=== PATIENT | male | born 1960 | race Caucasian/White ===

== ENCOUNTER 2019-12-18 19:07 | Observation (INO) ==
[2019-12-18 20:33] LABS: INR 1.1; Prothrombin Time 12.8 Seconds (9.4-12.1)
[2019-12-18 20:34] LABS: Basophils # 0.1 K/mcL (0.0-0.2); Eosinophils # 0.1 K/mcL (0.0-0.6); Eosinophils % 1.7 %; Hematocrit 42.4 % (37.5-50.1); Hemoglobin 13.9 g/dL (12.9-16.9); Immature Granulocytes % 0.2 % (0-4); Lymphocytes # 0.9 K/mcL (0.6-4.6); Lymphocytes % 18.2 %; Mean Corpuscular HGB Conc 32.8 g/dL (31.6-35.5); Mean Corpuscular Volume 91.6 fL (83.0-100.0); Mean Platelet Volume 11.8 fL (9.4-12.4); Monocytes # 0.6 K/mcL (0.0-1.3); Monocytes % 11.6 %; Neutrophils # 3.3 K/mcL (1.6-8.9); Platelet Count 141 K/mcL (140-400); Red Blood Count 4.63 M/mcL (4.19-5.50); Red Cell Distribution Width 13.2 % (11.5-14.5); Segmented Neutrophils % 67.3 %; White Blood Count 4.8 K/mcL (4.3-11.1)
[2019-12-18 20:36] LABS: Activated Partial Thrombo Time 32.5 Seconds (26.0-36.0)
[2019-12-18 21:05] LABS: Alanine Aminotransferase 35 Units/L (7-52); Albumin 4.5 g/dL (3.5-5.7); Albumin/Globulin Ratio 1.6 (1.1-2.2); Alkaline Phosphatase 60 Units/L (34-104); Aspartate Amino Transferase 26 Units/L (13-39); BUN/Creatinine Ratio 12 (6-26); Bilirubin,Direct 0.2 mg/dL (0.0-0.2); Bilirubin,Indirect 1.2 mg/dL (0.0-1.0); Bilirubin,Total 1.4 mg/dL (0.3-1.0); Blood Urea Nitrogen 12 mg/dL (8-23); Calcium 9.3 mg/dL (8.6-10.3); Carbon Dioxide 23 mEq/L (23-29); Chloride 103 mEq/L (98-107); Globulin 2.8 g/dL (2.4-3.5); Glucose 106 mg/dL (70-105); Osmolality,Calculated 282 (280-300); Potassium 4.1 mEq/L (3.5-5.1); Sodium 136 mEq/L (136-145); Total Protein 7.3 g/dL (6.4-8.9); Troponin I < 0.03 ng/mL (< 0.04); eGFR For African Americans > 60 (> 60); eGFR For Non-African Americans > 60 (> 60)
[2019-12-18] MEDS ORDERED: Aspirin 81 MG TAB.CHEW PO ONE (22:50)
[2019-12-19] MEDS ORDERED: Naloxone 0.4 MG/ML INJ IVP PRN (00:58)
[2019-12-19] MEDS ORDERED: Ondansetron ODT 4 MG TAB.RAPDIS SL PRN (00:58)
[2019-12-19] MEDS ORDERED: Perflutren Lipid Microsphere 1.3 ML in 0.9 % Sodium Chloride 8.7 ML IVP PRN (01:02)
[2019-12-19 04:45] LABS: Immature Granulocytes % 0.2 % (0-4); Mean Platelet Volume 11.3 fL (9.4-12.4)
[2019-12-19 04:46] LABS: Basophils % 0.7 %; Eosinophils # 0.1 K/mcL (0.0-0.6); Eosinophils % 1.4 %; Hematocrit 41.8 % (37.5-50.1); Hemoglobin 13.6 g/dL (12.9-16.9); Immature Platelets 8.5 % (1.1-6.1); Lymphocytes # 1.1 K/mcL (0.6-4.6); Lymphocytes % 26.8 %; Mean Corpuscular HGB Conc 32.5 g/dL (31.6-35.5); Mean Corpuscular Volume 92.1 fL (83.0-100.0); Monocytes # 0.6 K/mcL (0.0-1.3); Monocytes % 14.3 %; Neutrophils # 2.3 K/mcL (1.6-8.9); Platelet Count 125 K/mcL (140-400); Red Blood Count 4.54 M/mcL (4.19-5.50); Red Cell Distribution Width 13.3 % (11.5-14.5); Segmented Neutrophils % 56.6 %; White Blood Count 4.1 K/mcL (4.3-11.1)
[2019-12-19 05:10] LABS: BUN/Creatinine Ratio 12 (6-26); Blood Urea Nitrogen 12 mg/dL (8-23); Calcium 9.3 mg/dL (8.6-10.3); Carbon Dioxide 27 mEq/L (23-29); Chloride 102 mEq/L (98-107); Chol/HDL Ratio 4.7 (0-4.9); Cholesterol 202 mg/dL (< 200); Glucose 106 mg/dL (70-105); HDL Cholesterol 43 mg/dL (40-59); LDL Cholesterol,Calculated 112 mg/dL (< 100); Magnesium 1.9 mg/dL (1.6-2.6); Osmolality,Calculated 286 (280-300); Sodium 138 mEq/L (136-145); Triglycerides 233 mg/dL (< 150); eGFR For African Americans > 60 (> 60); eGFR For Non-African Americans > 60 (> 60)
[2019-12-19 05:19] LABS: Thyroid Stimulating Hormone 1.178 mcIU/mL (0.340-5.600)
[2019-12-19] MEDS: Acetaminophen 325 MG TABLET PO PRN ×2 (08:18→20:27)
[2019-12-19] MEDS: Aspirin Enteric Coated 81 MG Tablet PO SCH (08:19)
[2019-12-19] MEDS: Metoprolol XL (24 HR) Succ 25 MG TAB.ER.24H PO SCH (09:46)
[2019-12-19] MEDS ORDERED: Dexamethasone 4 MG/ML VIAL IVP ONE (13:58)
[2019-12-19] MEDS ORDERED: Isovue-370 500 ML BOTTLE IVP ONE (14:13)
[2019-12-19] MEDS ORDERED: Dexamethasone 4 MG/ML VIAL IVP SCH (15:15)
[2019-12-19] MEDS: Dexamethasone 4 MG/ML VIAL IVP SCH (20:28)
[2019-12-20] MEDS: Dexamethasone 4 MG/ML VIAL IVP SCH ×3 (02:30→13:53)
[2019-12-20 02:53] LABS: Hematocrit 44.6 % (37.5-50.1); Hemoglobin 14.6 g/dL (12.9-16.9); Immature Granulocytes % 0.4 % (0-4); Lymphocytes # 0.7 K/mcL (0.6-4.6); Lymphocytes % 29.8 %; Mean Corpuscular HGB Conc 32.7 g/dL (31.6-35.5); Mean Corpuscular Hemoglobin 30.8 pg (28.0-33.3); Mean Corpuscular Volume 94.1 fL (83.0-100.0); Mean Platelet Volume 11.9 fL (9.4-12.4); Monocytes # 0.1 K/mcL (0.0-1.3); Monocytes % 2.6 %; Neutrophils # 1.6 K/mcL (1.6-8.9); Platelet Count 154 K/mcL (140-400); Red Blood Count 4.74 M/mcL (4.19-5.50); Red Cell Distribution Width 13.5 % (11.5-14.5); Segmented Neutrophils % 67.2 %; White Blood Count 2.4 K/mcL (4.3-11.1)
[2019-12-20 03:08] LABS: BUN/Creatinine Ratio 16 (6-26); Blood Urea Nitrogen 17 mg/dL (8-23); Carbon Dioxide 26 mEq/L (23-29); Chloride 102 mEq/L (98-107); Glucose 157 mg/dL (70-105); Osmolality,Calculated 289 (280-300); Potassium 4.4 mEq/L (3.5-5.1); Sodium 137 mEq/L (136-145); eGFR For African Americans > 60 (> 60); eGFR For Non-African Americans > 60 (> 60)
[2019-12-20] MEDS: Metoprolol XL (24 HR) Succ 25 MG TAB.ER.24H PO SCH ×2 (08:11→08:12)
[2019-12-20] MEDS: Aspirin Enteric Coated 81 MG Tablet PO SCH (08:11)
[2019-12-20] MEDS ORDERED: Dexamethasone 4 MG/ML VIAL IVP SCH (09:00)
[2019-12-20 10:01] VITALS: BP 141/86
[2019-12-20] MEDS ORDERED: dexAMETHasone 4 MG TABLET PO SCH (16:30)
== END 2019-12-20 17:06 | disposition short-term general hospital (02) ==
LOC: CDU 19:07 → EMEROOARM 19:07 → SUATTDRO 23:15 → CDU 23:45 → 2NENU 12-19 21:40
PROVIDERS: ADMIT Student in an Organized Health Care Education/Training Program; ATTEND Internal Medicine